=== PATIENT | male | born 1955 | race Caucasian/White ===

== ENCOUNTER 2020-02-16 05:19 | Observation (INO) ==
--- NOTE | 2020-01-21 13:51 | PAT Medication Instructions ---
Medication Instructions Date of Service January 21, 2020 Home Medications albuterol sulfate 1 inh INHALATION QID PRN aspirin [Aspir-81] 81 mg PO QAM calcium carbonate-vitamin D3 [Calcium 600 + D(3)] 1 tab PO QAM cholecalciferol (vitamin D3) [Vitamin D3] 50 mcg PO QAM diclofenac sodium 2 g TOPICAL QAM diclofenac sodium 75 mg PO PM fish,bora,flax oils-om3,6,9no1 [[place] 3-6-9 Complex] 1 cap PO QAM glucosamine-chondroitin [Osteo Bi-Flex] 2 tab PO QAM montelukast [Singulair] 10 mg PO QAM multivit with [id number] [Men's Daily Multivit-Mineral] 1 tab PO QAM zinc 50 mg PO QAM ASK your surgeon for instructions diclofenac sodium 75 mg PO PM STOP taking 2 weeks before surgery fish,bora,flax oils-om3,6,9no1 [[place] 3-6-9 Complex] 1 cap PO QAM glucosamine-chondroitin [Osteo Bi-Flex] 2 tab PO QAM STOP taking 24 hours before surgery diclofenac sodium 2 g TOPICAL QAM DO NOT take the morning of surgery calcium carbonate-vitamin D3 [Calcium 600 + D(3)] 1 tab PO QAM cholecalciferol (vitamin D3) [Vitamin D3] 50 mcg PO QAM montelukast [Singulair] 10 mg PO QAM multivit with [id number] [Men's Daily Multivit-Mineral] 1 tab PO QAM zinc 50 mg PO QAM Take morning of surgery With a small sip of water, OTHERWISE NOTHING TO EAT OR DRINK AFTER MIDNIGHT: albuterol sulfate 1 inh INHALATION QID PRN (use if needed; please bring with you to hospital day of surgery if possible) aspirin [Aspir-81] 81 mg PO QAM Take evening before surgery albuterol sulfate 1 inh INHALATION QID PRN (if needed) Other Notes If you have any questions please call us at [phone] or [phone] or [phone] or [phone]
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
--- NOTE | 2020-01-25 11:08 | XRay Report ---
XR chest Pre-admission PA/Lat HISTORY: 64 years-old Male pat preoperative exam. No acute chest complaints COMPARISON: Shoulder radiographs 01/12/2020 TECHNIQUE: PA and lateral views of the chest FINDINGS: Cardiomediastinal and hilar silhouettes are within normal limits. There is no pneumothorax, pleural e ffusion, airspace consolidation or overt pulmonary edema. Degenerative changes of the shoulders and s pine. Bones appear grossly intact. IMPRESSION: No acute process. ACT 112: Negative or not required by law. The above report was generated using voice recognition software. It may contain grammatical, syntax o r spelling errors. Electronically signed by: Gee Ozuna M.D. 01/25/2020 11:06 AM
[2020-01-25 11:21] LABS: Basophils # (auto) 0.01 K/uL (0-0.2); Basophils % (auto) 0.2 %; Eosinophils # (auto) 0.07 K/uL (0-0.5); Eosinophils % (auto) 1.1 %; Hematocrit (blood only) 48.2 % (42-52); Hemoglobin 16.1 g/dL (14.0-18.0); Immature Granulocytes # (auto) 0.03 K/uL (0.00-0.02); Immature Granulocytes % (auto) 0.5 %; Lymphocytes % (auto) 26.2 %; Mean Corpuscular Hemoglobin 30.9 pg (25-34); Mean Corpuscular Hgb Conc 33.4 g/dL (32-36); Mean Corpuscular Volume 92.5 fL (80-100); Mean Platelet Volume 10.6 fL (7.4-10.4); Monocytes % (auto) 7.7 %; Neutrophils # (auto) 4.18 K/uL (1.4-6.5); Neutrophils % (auto) 64.3 %; Platelet Count 183 K/uL (130-400); RDW Coefficient of Variation 13.3 % (11.5-14.5); RDW Standard Deviation 45.3 fL (36.4-46.3); Red Blood Count 5.21 M/uL (4.7-6.1); White Blood Count 6.49 K/uL (4.8-10.8)
[2020-01-25 11:32] LABS: Partial Thromboplastin Ratio 0.9; Partial Thromboplastin Time 25.9 Seconds (21.0-31.0); Prothrombin Time 10.3 Seconds (9.0-12.0)
[2020-01-25 12:19] LABS: BUN Creatinine Ratio 21.4 (10-20); Calcium 9.9 mg/dl (8.5-10.1); Creatinine Clr Calc Pharmacy 67.5 ml/min; Est GFR (African American) 80.6; Est GFR (Non-African American) 69.5
--- NOTE | 2020-01-25 13:01 | Electrocardiogram Report ---
Test Reason : Blood Pressure : / mmHG Vent. Rate : 055 BPM Atrial Rate : 055 BPM P-R Int : 158 ms QRS Dur : 084 ms QT Int : 384 ms P-R-T Axes : 081 051 063 degrees QTc Int : 367 ms Sinus bradycardia Otherwise normal ECG No previous ECGs available Confirmed by Jeronimo Lockhart ([id number]) on 01/25/2020 1:01:09 PM Referred By: Brandon Dwyer Confirmed By:Jeronimo Lockhart
--- NOTE | 2020-02-13 13:34 | History and Physical Report ---
DATE OF ADMISSION: 02/16/2020 CHIEF COMPLAINT: Persistent progressive right hip pain. HISTORY OF PRESENT ILLNESS: The patient is a 65-year-old gentleman, retired jazz musician, who presents for surgical treatment of his right hip. He has a several year history of gradually increasing right hip pain and discomfort that has gotten significantly worse over the past 8 months. He used to walk 3 miles a day, but unable to do this for the past several months due to his hip pain. It has gradually progressed over time. He describes mostly groin and thigh pain. He has used oral medicines as well as topical medicines, which have not helped at all recently. He would now like to have his hip fixed. X-rays have shown progressive hip arthritis. PAST MEDICAL HISTORY: 1. Mild asthma. 2. Osteoarthritis. PAST SURGICAL HISTORY: Includes fingertip surgery. ALLERGIES: DUST AND POLLEN. CURRENT MEDICATIONS: Include: 1. Singulair. 2. Diclofenac. SOCIAL HISTORY: Significant for a 65-year-old male. He is a retired jazz musician. Very active. Enjoys exercising. Does not smoke. No significant alcohol intake. FAMILY HISTORY: Noncontributory. REVIEW OF HISTORY: Negative for diabetes, neurologic problem, vascular problems or bleeding disorders. No chest pain or shortness of breath. No history of DVT or PE. PHYSICAL EXAMINATION: GENERAL: Shows a pleasant, middle-aged male, looks to be in excellent health. HEENT: Benign. NECK: Supple, no lymphadenopathy. LUNGS: Clear to auscultation. HEART: Has a regular rate and rhythm. ABDOMEN: Soft, nontender, nondistended. EXTREMITIES: Grossly neurovascularly intact except as follows: Examination of the right hip and leg reveals the patient walks with just a slightly antalgic gait. His leg lengths look pretty equal. He may be just about a 0.5 cm short at most on this right side. He does have pain and stiffness with hip motion, particularly internal rotation. Negative straight leg raise. No knee effusion. He is neurologically intact. X-RAYS: X-rays of the hip were reviewed. It shows advanced right hip DJD. He has got complete loss of the superior joint space. He has got cystic changes of the femoral head and acetabulum. This has progressed over the past year. ASSESSMENT: A 65-year-old male with advanced right hip degenerative joint disease that has gotten significantly worse over the past 8-10 months. He has failed conservative treatment and would like to have his right hip replaced. PLAN: We will take him to the operating room and do a right total hip replacement. The risks and benefits of this procedure were explained to the patient and include but not limited to DVT, PE, , infection, neurological injury, vascular injury, bleeding problem, pain, limited range of motion, stiffness, failure to relieve symptoms, incomplete relief of symptoms, need for further surgery in the future, fracture, leg length inequality, nerve palsy, dislocation, need for revision surgery, etc. The patient understands and desires to proceed. Informed consent was obtained. As far as discharge plans, he is planning to be discharged to home using [facility] home health program.
[2020-02-16] MEDS ORDERED: ACETAMINOPHEN 500 MG TAB PO SCH (06:00)
[2020-02-16] MEDS ORDERED: LR 60ML/HR IV SCH (06:00)
[2020-02-16] MEDS ORDERED: FAMOTIDINE 20 MG TAB PO SCH (06:00)
[2020-02-16] MEDS ORDERED: TRANEXAMIC ACID 1,000 MG **IV Pre-op IV SCH (06:00)
[2020-02-16] MEDS ORDERED: METOCLOPRAMIDE HCL 10 MG TABLET PO SCH (06:00)
[2020-02-16] MEDS ORDERED: GABAPENTIN 600 MG DOSE PO SCH (06:00)
[2020-02-16] MEDS ORDERED: ceFAZolin 2000MG 2,000 MG/15 ML SYR IV SCH (06:00)
[2020-02-16] MEDS ORDERED: LR 500ML BOLUS, THEN 15ML/HR IV SCH (06:00)
[2020-02-16] MEDS ORDERED: BUPIVACAINE 0.5 % 5 MG/1 ML PF 10ML VIAL ONE (06:21)
[2020-02-16] MEDS ORDERED: PROPOFOL IV EMULSION 10 MG/ML 20 ML VIAL IV ONE (06:24)
[2020-02-16] MEDS ORDERED: MoRPHine SULFATE PF 1 MG/ML 10 ML AMP/VIAL ONE (06:24)
[2020-02-16] MEDS ORDERED: fentaNYL citrate 100 MCG/2 ML VIAL ONE (06:24)
[2020-02-16] MEDS ORDERED: MIDAZOLAM HCL 1 MG/ML 2ML VIAL ONE (06:24)
[2020-02-16] MEDS ORDERED: BACITRACIN INJ 50,000 UNIT VIAL ONE (06:48)
[2020-02-16] MEDS ORDERED: BUPIVACAINE 0.5 % 5 MG/1 ML MPF 30ML VIAL ONE (06:48)
[2020-02-16] MEDS ORDERED: EPINEPHrine INJ 1 MG/ML AMP ONE (06:48)
--- NOTE | 2020-02-16 06:53 | History & Physical Bridge Note ---
Date of Service February 16, 2020 History & Physical Bridge Note I have examined the patient, reviewed the History & Physical and in the interval since the performance of the History & Physical I have noted the following changes of clinical significance: no changes noted
[2020-02-16] MEDS ORDERED: PHENYLEPHRINE HCL 10 MG/ML VIAL ONE (07:21)
[2020-02-16] MEDS ORDERED: ePHEDrine sulfate 50 MG/ML AMP ONE (07:21)
--- NOTE | 2020-02-16 08:27 | Post Operative Brief Note ---
PG Immediate Post Op with CF Date of Surgery February 16, 2020 Pre & Post Diagnosis Operation Date: 02/16/20 07:00 Pre-Op Diagnosis: Right Hip Advanced Degenerative Joint Disease Post-Op Diagnosis: Right Hip Advanced Degenerative Joint Disease I identified the patient and participated in the time-out.: Yes Procedure Operation Date: 02/16/20 07:00 Actual Procedures p Right Total Hip Arthroplasty--Uncemented(Right) - Brandon Dwyer MD Surgeon Brandon Dwyer MD Software Test Specialist AUGUSTA Goncalves Estimated Blood Loss 200 Findings Consistent with Post-Op Diagnosis Fluids 1400 cc. Specimens Specimen Description: A. Right Femoral Head Drains Shelby Catheter Anesthesia Type Spinal MAC Complications none Disposition Accompanied Patient To Recovery: Yes Disposition: Recovery Room
--- NOTE | 2020-02-16 08:36 | Operative Report ---
Post Operative Report Pre & Post Diagnosis Operation Date: 02/16/20 07:00 Pre-Op Diagnosis: Right Hip Advanced Degenerative Joint Disease Post-Op Diagnosis: Right Hip Advanced Degenerative Joint Disease I identified the patient and participated in the time-out.: Yes Procedure Operation Date: 02/16/20 07:00 Actual Procedures p Right Total Hip Arthroplasty--Uncemented(Right) - Brandon Dwyer MD Surgeon Brandon Dwyer MD Program Engagement Director AUGUSTA Goncalves Estimated Blood Loss 200 Findings Consistent with Post-Op Diagnosis Operative findings revealed advanced right hip DJD. He had grade 4 [id number] disease of the femoral head and acetabulum. He had small anterior acetabular osteophytes. Moderate-sized joint effusion and some moderate synovitis. Fluids 1400 cc. Specimens Right femoral head sent for pathology. Drains None. 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 He is a very avid walker and less able to do that due to his hip pain. X-rays show progressive hip arthritis. He elected proceed with surgical treatment. Description of Procedure Operative implants consist of: 1. Biomet G7 size 56 mm acetabular shell. 2. 6.5 cancellous acetabular screws 1 of 35 mm length 125 mm length. 3. An apex hole dancing instructor. 4. Highly cross-linked polyethylene liner with a 56 mm outer diameter and 36 mm inner diameter. 5. Akiko Corail size 11 KLA femoral stem. 6. +8.5/36 mm ceramic articular ball. The patient was taken to the operating identified and placed on the operating table supine position protectors were properly padded. IV antibiotics tried by anesthesia team. A spinal anesthetic had been implemented holding area. Shelby catheter was placed in sterile fashion. The patient then placed in the left lateral decubitus position. An axillary roll was placed. A Stulberg hip positioner was used for positioning. The right hip and leg were then prepped and draped in usual sterile fashion. A posterior lateral approach to the right hip was then performed through a curvilinear incision centered over the greater trochanter. Sharp dissection was carried out through the subcutaneous tissue down to the IT band gluteal fascia with the IT band gluteal fascia then incised longitudinally in line with skin incision. The underlying greater bursa was excised. The piriformis and external rotators were tagged and taken off the posterior aspect hip joint capsule. Great care was taken throughout the procedure to protect the sciatic nerve at all times. A posterior capsulotomy was then performed leaving a large flap for later repair. Hip was internally rotated and dislocated. Femoral neck osteotomy cut was made with Final Cut 10 mm above the lesser trochanter. Femoral head was removed and sent for pathology. The femur was retracted anteriorly. Attention drawn the acetabulum. The acetabulum labrum was excised per the pulmonary fat was excised. Sequential reaming the acetabular was then performed again with size 45 progressing up to 5 5. I did reamed a little bit with a 56 reamer and then placed a 56 Biomet G7 acetabular shell. This was placed in about 40 degrees lateral opening and 20 degrees of anteversion. I did put a little more anteversion and as his hip was fairly mobile preoperatively. Small anterior osteophyte was removed. A trial liner was placed. Attention drawn the femur. The proximal femur was entered with a cookie-cutter followed by canal finder. I then broached begin the size 8 and progressing up to 11. Got excellent fit at 11. Calcar reamer was used smooth and off the calcar. I then trialed the hip. The hip was fully stable with all trials but soft tissue density was just lax with the +5 head. Therefore I elected to use the +8.5. Leg lengths seem equal. The hip was fully stable in full extension and external rotation flexion to 9 degrees into rotation over 50 degrees degrees. I elect to place these implants. All trial implants were removed. An apex hole dancing instructor was placed. Highly cross-linked polyethylene liner was placed. A Akiko KLA size 11 femoral stem was impacted in position. A +8.5/36 mm ceramic articular ball was placed. Hip was located once again found to be stable. Attention drawn toward closing. The wounds irrigated cups amounts of pulsatile lavage solution. I did inject locally with 60 cc of absent Marcaine with epinephrine. The posterior capsule and external rotators were then repaired through the posterior aspect of the greater trochanter with #2 Tycron suture. The IT band gluteal fascia then closed #1 PDS suture running fashion for subcutaneous tissues then closed with 2 layers with a deep layer #1 Vicryl suture and subcutaneous tissues with 2-0 Dexon suture in a buried interrupted fashion. Skin was closed skin bobo. Leg was then cleaned dried a sterile dressing composed Xeroform, 4 x 4's, ABD pad and foam tape was applied. Patient then transferred to the recovery room in stable condition. The patient tolerated the procedure well and there were no complications. Young Goncalves, my physician assistant professor of music, was present for the entire procedure. His assistance was essential and required for appropriate patient positioning, prepping and draping, surgical exposure, performing the technical details of the operation, placement the implants, closure of the wound, and placement of the sterile bandage. I attest to the content of the Intraoperative Record and any orders documented therein. Any exceptions are noted below.
--- NOTE | 2020-02-16 09:01 | XRay Report ---
XR hip 1V RT w pelvis CLINICAL HISTORY: Postoperative evaluation. COMPARISON: Right hip radiographs May 20, 2019. FINDINGS: Alignment of the total right hip arthroplasty is anatomic. There is no periprosthetic frac ture or unexpected radiopaque foreign body. Acetabular screws are noted. There are skin bobo. IMPRESSION: Expected findings following total right hip arthroplasty. ACT 112: Negative or not required by law. Electronically signed by: Yonny Kwong M.D. 02/16/2020 9:00 AM
[2020-02-16] MEDS ORDERED: NALOXONE HCL 0.08 MG in SYRINGE 1.8 ML IV PRN (09:12)
[2020-02-16] MEDS ORDERED: diphenhydrAMINE 50 MG/ML VIAL IV PRN (09:12)
[2020-02-16] MEDS ORDERED: ePHEDrine sulfate 50 MG/ML AMP IV PRN ×2 (09:12)
[2020-02-16] MEDS ORDERED: ATROPINE SULFATE 0.1 MG/ML 10ML SYR IV PRN (09:12)
[2020-02-16] MEDS ORDERED: ONDANSETRON INJ 2 MG/ML 2 ML VIAL IV PRN (09:12)
[2020-02-16] MEDS ORDERED: NALOXONE HCL 1 MG in SODIUM CHLORIDE 0.9% 1000ML 1,000 ML IV PRN (09:12)
[2020-02-16] MEDS ORDERED: NALOXONE HCL 0.4 MG/1 ML VIAL/CARP IV PRN ×2 (09:12→09:42)
[2020-02-16] MEDS ORDERED: MoRPHine SULFATE PF 1 MG/ML 10 ML AMP/VIAL INT SPINAL ONE (09:12)
[2020-02-16] MEDS ORDERED: LACTATED RINGER'S 500 ML IV PRN (09:12)
[2020-02-16] MEDS ORDERED: HYDROmorphone INJ 0.5 MG/0.5 ML SYR IV PRN (09:12)
--- NOTE | 2020-02-16 09:14 | Anesthesiology Progress Note ---
Date of Service February 16, 2020 Anesthesia Post Procedure Vital Signs Vital Signs: Temp Pulse Pulse Resp BP BP Pulse Ox 02/16/20 08:59 36.4 C L 56 L 20 107/65 94 02/16/20 08:50 36.4 C L 66 20 103/66 95 02/16/20 08:40 68 20 103/66 97 02/16/20 08:30 66 15 105/61 100 02/16/20 08:21 36.1 C L 82 15 108/63 96 02/16/20 06:27 36.7 C 57 L 19 129/84 98 Transfer of Care Handoff Completed per policy Notes Mental Status: alert / awake / arousable and participated in evaluation Nausea / Vomiting: adequately controlled Pain: adequately controlled Airway Patency, RR, SpO2: stable & adequate BP & HR: stable & adequate Hydration State: stable & adequate Neuraxial Anesthesia: was administered and sensory block is resolving Anesthetic Complications: no major complications apparent and Pt Satisfied with anesthetic care
[2020-02-16] MEDS ORDERED: SODIUM CHLORIDE 0.9% 1000ML 1,000 ML IV SCH (09:15)
[2020-02-16] MEDS ORDERED: NO NARCOTICS OR SEDATIVES SCH (09:15)
[2020-02-16] MEDS ORDERED: DC INTRASPINAL MORPHINE SCH (09:15)
[2020-02-16] MEDS ORDERED: NON-FORMULARY MEDICATION (Zinc 50 mg Tablet) PO SCH (09:42)
[2020-02-16] MEDS ORDERED: ALUMINUM/MAGNESIUM SUSP 30 ML UDC PO PRN (09:42)
[2020-02-16] MEDS ORDERED: ALBUTEROL HFA 8 GM INHALER INH PRN (09:42)
[2020-02-16] MEDS ORDERED: TAMSULOSIN HCL 0.4 MG CAP PO PRN (09:42)
[2020-02-16] MEDS ORDERED: MAGNESIUM HYDROXIDE SUSP 30 ML UDC PO PRN (09:42)
[2020-02-16] MEDS ORDERED: MULTIVIT WITH MIN FA LYCOPENE PO SCH (09:42)
[2020-02-16] MEDS ORDERED: METOCLOPRAMIDE HCL INJ 5 MG/ML 2 ML VIAL IV PRN (09:42)
[2020-02-16] MEDS ORDERED: bisacodyL 10 MG SUPP PR PRN (09:42)
[2020-02-16] MEDS ORDERED: [UNRECOGNIZED DRUG - OTHER] PO SCH (09:42)
[2020-02-16] MEDS: KETOROLAC 30 MG/ML VIAL IV SCH ×3 (11:35→21:31)
[2020-02-16] MEDS: MULTIVITAMIN TAB PO SCH (11:36)
[2020-02-16] MEDS: DOCUSATE SODIUM 100 MG CAP PO SCH ×2 (11:36→21:26)
[2020-02-16] MEDS: ASPIRIN 81 MG ECTAB PO SCH ×2 (11:36→21:26)
[2020-02-16] MEDS: SODIUM CHLORIDE 0.9% 1000ML 1,000 ML IV SCH ×2 (11:37→21:31)
[2020-02-16] MEDS: ACETAMINOPHEN 500 MG TAB PO SCH ×2 (13:25→21:26)
--- NOTE | 2020-02-16 14:14 | Progress Notes ---
DATE: 02/16/2020 SUBJECTIVE: A 65-year-old gentleman postop from a right hip replacement. He is doing well. Not having any pain yet. No chest pain or shortness of breath. Not feeling dizzy or lightheaded. OBJECTIVE: VITAL SIGNS: Temperature 36.4. Vital signs stable. GENERAL: Shows a pleasant, middle-aged male. He is sitting up in bed and talking to his and looks quite comfortable. LUNGS: Clear to auscultation. HEART: Has a regular rate and rhythm. ABDOMEN: Soft, nontender, nondistended. EXTREMITIES: Grossly neurovascularly intact except as follows. Examination of the right leg reveals the leg to be well aligned. Dressing is clean, dry and intact. Thigh is soft and supple. Leg lengths are equal. He can dorsiflex and plantarflex his foot appropriately. X-RAYS: X-rays of the right hip from recovery room reviewed. It shows right uncemented total hip arthroplasty. Components looked to be in good position. No signs of problems. ASSESSMENT: A 65-year-old gentleman postop from right hip replacement, doing well. Hip is located. He is neurologically intact. His pain is controlled. PLAN: 1. DVT prophylaxis including thigh-high TEDs, SCDs, and aspirin twice a day. 2. PT/OT. Weight bear as tolerated. Right total hip protocol. 3. Pain control, doing well with current pain regimen. 4. IV antibiotics x24 hours. 5. Disposition: Plan to discharge to home with some home health once adequately recovered, medically stable, and pain controlled.
[2020-02-16] MEDS ORDERED: TRANEXAMIC ACID / 0.7% NACL 1,000 MG/100 ML BAG IV SCH (14:29)
[2020-02-16] MEDS: ceFAZolin 1000MG 1,000 MG/7.5 ML SYR IV SCH ×2 (15:40→21:31)
[2020-02-16] MEDS: Scopolamine CHECK PATCH PLACEMENT SCH (15:42)
[2020-02-16] MEDS: ASCORBIC ACID 500 MG TAB PO SCH (17:52)
[2020-02-16] MEDS ORDERED: MONTELUKAST SODIUM 10 MG TABLET PO SCH (21:00)
[2020-02-16] MEDS ORDERED: SENNA 8.6 MG TAB PO SCH (21:00)
[2020-02-17] MEDS: Scopolamine CHECK PATCH PLACEMENT SCH ×2 (01:24→08:33)
[2020-02-17] MEDS ORDERED: DC INTRASPINAL MORPHINE ONE (03:12)
[2020-02-17] MEDS ORDERED: HYDROmorphone INJ 0.5 MG/0.5 ML SYR IV PRN (03:15)
[2020-02-17] MEDS ORDERED: ONDANSETRON INJ 2 MG/ML 2 ML VIAL IV PRN (03:15)
[2020-02-17] MEDS ORDERED: traMADol HCL 50 MG TABLET PO PRN (03:15)
[2020-02-17] MEDS: KETOROLAC 30 MG/ML VIAL IV SCH ×2 (03:56→09:38)
[2020-02-17] MEDS: ACETAMINOPHEN 500 MG TAB PO SCH ×2 (05:37→13:42)
[2020-02-17] MEDS: SODIUM CHLORIDE 0.9% 1000ML 1,000 ML IV SCH (06:21)
[2020-02-17 06:44] LABS: Basophils # (auto) 0.01 K/uL (0-0.2); Basophils % (auto) 0.1 %; Eosinophils # (auto) 0.05 K/uL (0-0.5); Eosinophils % (auto) 0.7 %; Hematocrit (blood only) 41.4 % (42-52); Hemoglobin 13.2 g/dL (14.0-18.0); Immature Granulocytes # (auto) 0.01 K/uL (0.00-0.02); Immature Granulocytes % (auto) 0.1 %; Lymphocytes % (auto) 17.1 %; Mean Corpuscular Hemoglobin 30.5 pg (25-34); Mean Corpuscular Hgb Conc 31.9 g/dL (32-36); Mean Corpuscular Volume 95.6 fL (80-100); Mean Platelet Volume 10.7 fL (7.4-10.4); Monocytes # (auto) 0.77 K/uL (0.11-0.59); Monocytes % (auto) 10.1 %; Neutrophils # (auto) 5.48 K/uL (1.4-6.5); Neutrophils % (auto) 71.9 %; Platelet Count 140 K/uL (130-400); RDW Coefficient of Variation 13.8 % (11.5-14.5); RDW Standard Deviation 48.4 fL (36.4-46.3); Red Blood Count 4.33 M/uL (4.7-6.1); White Blood Count 7.62 K/uL (4.8-10.8)
[2020-02-17 06:50] LABS: BUN Creatinine Ratio 15.9 (10-20); Calcium 8.2 mg/dl (8.5-10.1); Creatinine Clr Calc Pharmacy 79.4 ml/min; Est GFR (African American) 98.9; Est GFR (Non-African American) 85.3; Potassium 4.4 mmol/L (3.5-5.1)
[2020-02-17] MEDS: ASCORBIC ACID 500 MG TAB PO SCH (08:33)
[2020-02-17] MEDS: DOCUSATE SODIUM 100 MG CAP PO SCH (08:34)
[2020-02-17] MEDS: MULTIVITAMIN TAB PO SCH (08:34)
[2020-02-17] MEDS ORDERED: CALCIUM 600MG + VIT D 400 IU TAB PO SCH (09:00)
[2020-02-17] MEDS ORDERED: CHOLECALCIFEROL 1,000 UNITS 25 MCG TAB PO SCH (09:00)
[2020-02-17] MEDS: ASPIRIN 81 MG ECTAB PO SCH (09:37)
--- NOTE | 2020-02-17 10:52 | Progress Notes ---
DATE: 02/17/2020 SUBJECTIVE: A 65-year-old gentleman postop day 1 from a right hip replacement. He is doing well. Pain has been very manageable. No chest pain, no shortness of breath. Not feeling dizzy or lightheaded. OBJECTIVE: VITAL SIGNS: Temperature 36.9. Vital signs stable. GENERAL: Shows a pleasant, middle-aged male. He is sitting up in his bedside chair and looks quite comfortable. EXTREMITIES: Examination of the right leg and hip reveals the dressing to be clean, dry, and intact. Leg lengths are equal. He can dorsiflex and plantarflex his foot appropriately. He is neurologically intact. LABORATORY DATA: Hemoglobin 13.2. Hematocrit 41.4. Electrolytes are stable. ASSESSMENT: A 65-year-old gentleman postop day 1 from right hip replacement, doing quite well. His pain is controlled. Hip is located. He is neurologically intact. PLAN: 1. DVT prophylaxis including thigh-high TEDs, SCDs, and aspirin twice a day. 2. PT/OT. Weight bear as tolerated. Right total hip protocol. 3. Pain control, doing well with current pain regimen. 4. Disposition: Plan to discharge to home with some home health likely later today if therapy goes okay.
== END 2020-02-17 14:42 | disposition home health service (06) ==
LOC: 3E 05:19 → ASU 05:19
DX: Z79.899 Other long term (current) drug therapy; J45.909 Unspecified asthma, uncomplicated; Z87.891 Personal history of nicotine dependence; M16.11 Unilateral primary osteoarthritis, right hip; Z79.82 Long term (current) use of aspirin; Z20.828 Contact with and (suspected) exposure to other viral communicable diseases